=== PATIENT | male | born 1965 | race Caucasian/White ===

== ENCOUNTER 2018-03-11 10:16 | Emergency (ER) | payer MEDICAID ==
[~2018-03-11] VITALS: Ht 177.8 cm; Wt 81.7 kg
[~2018-03-11 10:16] MED LIST: HYDACE5 PO; NAPR500 PO; OXYACE5T PO
[2018-03-11] MEDS ORDERED: Keflex500 MG PO (13:27)
== END 2018-03-11 13:50 | disposition home or self-care (01) ==
LOC: ER 10:16
DX: S61.217A Laceration without foreign body of left little finger without damage to nail, initial encounter (principal); S61.215A Laceration without foreign body of left ring finger without damage to nail, initial encounter; Z23 Encounter for immunization; W29.3XXA Contact with powered garden and outdoor hand tools and machinery, initial encounter
CPT/HCPCS: 12002; 90714; 96372; 99282